=== PATIENT | female | born 1990 | race Two or more races ===

== ENCOUNTER 2022-01-14 11:34 | Inpatient (IN) | payer MEDICAID ==
[~2022-01-14] VITALS: Ht 157.5 cm; Wt 80.0 kg
[2022-01-14 12:12] LABS: Hematocrit 37.3 % (36.0-46.0); Hemoglobin 12.1 g/dL (12.2-16.2); Mean Corpuscular Hemoglobin 28.4 pg (28.0-32.0); Mean Corpuscular Hgb Conc. 32.5 g/dL (32.0-36.0); Mean Corpuscular Volume 87.2 fL (80.0-100.0); Red Blood Cells 4.27 10^6/uL (4.0-5.20); Red Cell Distribution Width 14.1 % (11.8-14.3); White Blood Cell 5.5 10^3/uL (4.4-10.8)
[2022-01-14 12:18] LABS: Basophils % (manual) 0 (0.0-2.0); Blast Cells 0; Eosinophils % (manual) 0 (0-7); Metamyelocytes % 0; Myelocytes % 0; Promyelocytes % 0
[2022-01-14 12:28] LABS: Calcium 9.3 mg/dL (8.5-10.1); Potassium 4.1 mmol/L (3.5-5.1)
[2022-01-14 12:31] LABS: BUN/Creatinine Ratio 26.3; Bilirubin, Total 0.3 mg/dL (0.2-1.0); Total Protein 6.6 g/dL (6.4-8.2)
[2022-01-14 13:17] LABS: Band Neutrophils % (manual) 1; Lymphocytes % (manual) 29 (10.0-50.0); Monocytes % (manual) 8 (0-12); Reactive Lymphocytes 3
[2022-01-14] MEDS ORDERED: MORPHINE SULFATE INJ 2 MG/ml SYRG IV PRN (17:00)
[2022-01-14] MEDS ORDERED: HYDROcodone-ACET 5/325MG TAB PO PRN (17:00)
[2022-01-14] MEDS ORDERED: ACETAMINOPHEN 325 MG TAB PO PRN (17:00)
[2022-01-14 18:05] LABS: Urine Bacteria FEW /hpf (None Seen); Urine Blood Negative /uL (Negative); Urine Mucus FEW (None Seen); Urine Specific Gravity 1.011 (1.001-1.035); Urine WBC 2 /hpf (0 - 5)
[2022-01-14] MEDS: SODIUM CHLORIDE 0.9% 1,000 ML IV SCH (18:32)
[2022-01-14] MEDS: CARVEDILOL 12.5 MG TAB PO SCH (22:36)
[2022-01-14 22:46] VITALS: BP 129/69
[2022-01-14] MEDS ORDERED: FURO1TAB33 PO (23:02)
[2022-01-14] MEDS ORDERED: MORPHINE SULFATE 4 MG/ML SYR/VIAL IV PRN (23:15)
[2022-01-14] MEDS ORDERED: NITROGLYCERIN 0.4 MG SL TAB SL PRN (23:15)
[2022-01-14] MEDS ORDERED: SPIR25TA8 PO (23:35)
[2022-01-14] MEDS ORDERED: CAR125T PO (23:35)
[2022-01-14] MEDS ORDERED: LOS25T PO (23:35)
[2022-01-15 05:00] VITALS: BP 110/59
[2022-01-15 07:04] LABS: Basophils # (auto) 0 10 ^3/uL (0-0.2); Basophils % (auto) 0.8 % (0.0-2.0); Eosinophils # (auto) 0 10 ^3/uL (0-0.8); Eosinophils % (auto) 0.8 % (0.0-7.0); Hemoglobin 10.9 g/dL (12.2-16.2); Lymphocytes # (auto) 2.2 10 ^3/uL (0.4-5.4); Lymphocytes % (auto) 45.3 % (10.0-50.0); Mean Corpuscular Hemoglobin 28.7 pg (28.0-32.0); Mean Corpuscular Hgb Conc. 32.9 g/dL (32.0-36.0); Mean Corpuscular Volume 87.2 fL (80.0-100.0); Monocytes # (auto) 0.7 10 ^3/uL (0-1.3); Neutrophils # (auto) 1.9 10 ^3/uL (1.6-8.6); Neutrophils % (auto) 38.1 % (37.0-80.0); Nucleated Red Blood Cells % 0.1 %; Red Blood Cells 3.78 10^6/uL (4.0-5.20); Red Cell Distribution Width 13.9 % (11.8-14.3); White Blood Cell 4.9 10^3/uL (4.4-10.8)
[2022-01-15 07:22] LABS: Albumin 2.6 g/dL (3.4-5.0); BUN/Creatinine Ratio 40.5; Calcium 8.7 mg/dL (8.5-10.1); Potassium 4.2 mmol/L (3.5-5.1)
[2022-01-15 07:25] LABS: Bilirubin, Total 0.3 mg/dL (0.2-1.0); Total Protein 5.8 g/dL (6.4-8.2)
[2022-01-15 08:52] VITALS: BP 103/64
[2022-01-15] MEDS: SODIUM CHLORIDE 0.9% 1,000 ML IV SCH (09:40)
[2022-01-15] MEDS: ENOXAPARIN SOD 40 MG/0.4 ML SYRINGE SC SCH (10:00)
[2022-01-15] MEDS: CARVEDILOL 12.5 MG TAB PO SCH ×2 (11:17→21:24)
[2022-01-15] MEDS: LOSARTAN POTASSIUM 25 MG TAB PO SCH (11:20)
[2022-01-15 13:00] VITALS: BP 112/55
[2022-01-15 16:47] VITALS: BP 122/59
[2022-01-15 18:18] LABS: Alcohol, Urine < 3.0 mg/dL (0-10); Amphetamine Screen, Urine NEGATIVE (NEGATIVE); Barbiturate Scree,Urine NEGATIVE (NEGATIVE); Benzodiazephine Screen, Urine NEGATIVE (NEGATIVE); Cannabinoid Screen, Urine NEGATIVE (NEGATIVE); Cocaine Screen, Urine NEGATIVE (NEGATIVE); Phencyclidine Screen, Urine NEGATIVE (NEGATIVE)
[2022-01-15 18:21] LABS: Opiate Scree,Urine NEGATIVE (NEGATIVE)
[2022-01-15 22:00] VITALS: BP 121/77
[2022-01-16] MEDS: SODIUM CHLORIDE 0.9% 1,000 ML IV SCH (02:20)
[2022-01-16 05:00] VITALS: BP 120/52
[2022-01-16 09:00] VITALS: BP 118/68
[2022-01-16] MEDS ORDERED: SPIRONOLACTONE 25 MG TAB PO SCH (10:00)
[2022-01-16] MEDS ORDERED: DAPAGLIFLOZIN 5 MG TAB PO SCH (10:00)
[2022-01-16] MEDS: CARVEDILOL 12.5 MG TAB PO SCH (10:00)
[2022-01-16] MEDS: LOSARTAN POTASSIUM 25 MG TAB PO SCH (10:00)
[2022-01-16] MEDS: ENOXAPARIN SOD 40 MG/0.4 ML SYRINGE SC SCH (10:00)
[2022-01-16] MEDS ORDERED: MAGNESIUM SULFATE 1GM/100ML 100 ML IV ONE (10:45)
[2022-01-16 13:00] VITALS: BP 113/58
[2022-01-16] MEDS ORDERED: CARVEDILOL 12.5 MG TAB PO SCH (22:00)
== END 2022-01-16 15:59 | disposition left against medical advice (07) | DRG 205 ==
LOC: ER 11:40 → TELE 16:47 → TELE-WESTW 22:46
PROVIDERS: ADMIT Internal Medicine; ATTEND Internal Medicine
DX: I42.7 Cardiomyopathy due to drug and external agent (principal); I50.23 Acute on chronic systolic (congestive) heart failure; I21.A1 Myocardial infarction type 2; E88.09 Other disorders of plasma-protein metabolism, not elsewhere classified; R56.9 Unspecified convulsions; R73.03 Prediabetes; E66.9 Obesity, unspecified; R00.0 Tachycardia, unspecified; Z20.822 Contact with and (suspected) exposure to COVID-19; Z53.29 Procedure and treatment not carried out because of patient's decision for other reasons; T43.625A Adverse effect of amphetamines, initial encounter; R73.9 Hyperglycemia, unspecified; Z88.8 Allergy status to other drugs, medicaments and biological substances; Z86.74 Personal history of sudden cardiac arrest; Y92.89 Other specified places as the place of occurrence of the external cause; Z68.32 Body mass index [BMI] 32.0-32.9, adult
CPT/HCPCS: 36415; 71045; 80053; 80307; 81001; 83036; 83735; 83880; 84443; 84484; 85007; 85025; 85027; 87081; 93005; 93306; 96361; 96374; G0378